=== PATIENT | female | born 1965 | race Caucasian/White ===

== ENCOUNTER 2017-07-30 06:57 | Day surgery (SDC) | payer BC ==
[~2017-07-30 06:57] MED LIST: ACETAMINOPHEN 500 MG TABLET PO PRN; HYDROmorphone HCL 2 MG/ML VIAL IV PRN; MAG HYDROX/ALUMINUM HYD/SIMETH 30 ML UDC PO PRN; MAGNESIUM HYDROXIDE 30 ML UDC PO PRN; ONDANSETRON HCL/PF 2 MG/ML VIAL IV PRN; PROMETHAZINE HCL 25 MG in DEXTROSE 5 % IN WATER 50 ML IV PRN; RINGER'S SOLUTION,LACTATED 1,000 ML IV PRN; ZOLPIDEM TARTRATE 5 MG TABLET PO PRN; ceFAZolin SODIUM 1 GM VIAL IV PRN; diphenhydrAMINE HCL 50 MG/ML VIAL IV PRN; oxyCODONE HCL/ACETAMINOPHEN 1 TAB TABLET PO PRN
[2017-07-30] MEDS ORDERED: BUPIVACAINE HCL 50 ML VIAL IJ ONE ×2 (08:00)
--- NOTE | 2017-07-30 08:41 | OR ---
Operative Report - Dictated Report Narrative: Date: 07/30/2017 Physician: Brian Ragsdale M.D. Cell[employer]ane Worker: Newton Santos PA-C Preoperative diagnosis: Ganglion cyst left ring finger Postoperative diagnosis: Ganglion cyst left ring finger Procedure: Excision of ganglion cyst left ring finger Anesthesia: MAC plus local Complications: None Estimated blood loss: Minimal Tourniquet time: 21 Minutes with forearm esmarch Specimens: Cyst for permanent section Drains: None Indications: Melanie Is a 52 year-old female who has been followed in my clinic with complaints of a cyst at the base of her left ring finger that has become progressively more symptomatic. Physical exam was consistent with a ganglion cyst likely originating from the flexor tendon sheath. Conservative measures have failed including but not limited to activity modification, medications, and passage of time. The risks, benefits, and alternatives were discussed in clinic. The risks being bleeding, infection, nerve, tendon, blood vessel injury , recurrence, persistent pain, wound complications, weakness, need for additional procedures, and persistent symptoms. Consent was obtained in the clinic. Procedure: After marking the correct extremity in the preoperative holding area, a timeout was performed in the operating room. IV antibiotics consisting of 1 g of Ancef were administered prior to the procedure. The left upper extremity was then prepped and draped in usual sterile fashion. The hand was exsanguinated with an Esmarch bandage which was then wrapped around itself and left in place as a tourniquet at the wrist. A small Kavya style incision was marked out at the proximal finger crease of the left ring finger with the apex at the radial aspect. 0.5% Marcaine without epinephrine was infused into the projected incision site. Using Loupe magnification, the small Kavya incision was made and careful dissection was carried out down through the subcutaneous tissues using tenotomy scissors. The radial digital nerve was identified and carefully retracted radially with a Ragnell retractor. The cyst was then visualized and was consistent in appearance with a ganglion cyst. It was adhered to the A2 rossy and appeared to be originating from deeper in the flexor tendon sheath. The cyst was dissected away from the A2 rossy using tenotomy scissors and dissected down to its base. We excised the cyst at its stalk from the flexor tendon sheath and placed in a specimen cup for permanent section. This point the wound was inspected to ensure that we had removed the cyst in its entirety. Once we were confident we had removed all cystic tissue, the wounds were thoroughly irrigated with saline. Tourniquet was let down and hemostasis was obtained with pressure as well as bipolar cautery. Once bleeding had resolved and there was no excessive bleeding, the wounds were closed with interrupted 4- 0 nylon. Xeroform, 4 x 4's, 2 inch Maikol, and 3 inch Coban was applied. The patient was awoken and transferred to the post-anesthesia care unit in stable condition. All sponge, needle, blade, and instrument counts were correct prior to closing the wounds. Additional 0.5% Marcaine without epinephrine was infused into the skin edges for pain control.
[2017-07-30 10:38] VITALS: BP 100/61
[2017-07-30] MEDS ORDERED: SENNOSIDES/DOCUSATE SODIUM 1 TAB TABLET PO SCH (21:00)
== END 2017-07-30 06:58 | disposition home or self-care (01) ==
LOC: AMB 06:57
PROVIDERS: ATTEND Orthopaedic Surgery
PROC: 0XBK0ZZ Excision of Left Hand, Open Approach (ICD-10-PCS; principal; 2017-07-30 08:00)
DX: M67.442 Ganglion, left hand (principal); Z68.23 Body mass index [BMI] 23.0-23.9, adult

== ENCOUNTER 2018-08-23 17:59 | Observation (INO) ==
--- NOTE | 2018-08-23 18:14 | ERNOTE ---
Dizziness ER Record Date of Service: 08/23/18 Presenting Symptoms: dizziness Time Seen by Provider: 08/23/18 18:14 Source: patient Exam Limitations: no limitations Allergies/Adverse Reactions: Allergies Allergy/AdvReac Type Severity Reaction Status Date / Time No Known Allergies Allergy Verified 08/23/18 18:07 Home Medications: HOME MEDICATIONS Bupropion HCl [Wellbutrin Xl] 300 mg PO DAILY 05/15/13 [Last Taken Unknown] Multivitamin [Multivitamins] 1 each PO DAILY 07/30/17 [Last Taken Unknown] - Pain Score Pain Score #1 Pain Score: 3 - History of Present Illness Narrative: The patient is a 53 year old female who presents for dizziness which has been present for 3 weeks. Patient states that since yesterday she has had intermittent periods of left arm and leg disfunction and spouse noted slow responsiveness to questions. There are associated symptoms of left chest and mid back pain. The patient reports pain to left chest and mid back, 3/10. There are no alleviating factors. There are no aggravating factors. Previous treatments have included: none. The past medical history includes: anemia and depression. The social history is negative. The patient has had no ill contacts. Patient states that yesterday evening while resting at home she noticed that she attempted to move left arm and leg and it would not respond. Patient states that symptoms lasted for approximately 1-2 minutes then resolved. Patient states she has had periods where she feels like her left side is going to be numb and not respond but is normal. Patient states yesterday these symptoms occurred twice. Patient states today while at work she attempted to raise arms to take a picture with phone and left arm would not respond appropriately as well as left arm and leg begin weak to the point she had to sit down. Timing and Duration: better Usually:: Present: walks w/o assistance Review of Systems - Review of Systems Constitutional: Present: fatigue. Absent: fever EYE: Present: vision changes ENT: Present: ear pain. Absent: nasal drainage, sore throat Respiratory: Present: shortness of breath. Absent: cough Cardiology: Present: chest pain, palpitations Gastrointestinal/Abdominal: Present: no symptoms reported. Absent: nausea, vomiting, diarrhea Genitourinary: Present: no symptoms reported. Absent: dysuria, decreased urinary output Musculoskeletal: Present: no symptoms reported Skin: Present: no symptoms reported. Absent: rash Neurological: Present: dizziness/light-headedness, numbness, tingling Endocrine: Present: no symptoms reported Hematologic/Lymphatic: Present: no symptoms reported Psych: Present: no symptoms reported All Other Systems: All systems neg except as marked Medical History (Last Reviewed 08/23/18 @ 18:38 by MY Gann) Hx of cataract Surgical History: Surgical History (Last Reviewed 08/23/18 @ 18:38 by MY Gann) Hx of cataract surgery Hx of tubal ligation Family History: Family History (Last Reviewed 08/23/18 @ 18:38 by MY Gann) Other No pertinent family history Social History: Preferred Language Prydeinig Do you have any amish or No cultural preference? Smoking Status Never smoker Abuse History No History of abuse Psych History Hx of Depression,Currently on Meds No Social History Section defined Physical Exam - Physical Exam General Appearance: Present: wd/wn, alert, no apparent distress Head Exam: Present: normal inspection, no evidence of injury Eye Exam: Normal inspection: bilateral, PERRL: bilateral, EOMI: bilateral Progress - Date and Time Seen: Date and Time: 08/23/18 20:33 Discussed case with and will admit patient for TIA's and dizziness. Patient to have MRI brain tomorrow for further evaluation. - Results and Orders Patient's Lab Results:: I have reviewed the patient's lab results. - Vital Signs Patient's Vital Signs:: I have reviewed the patient's vital signs. Vital Signs: Vital Signs 08/23/18 18:05 Temperature 36.7 C Pulse Rate 78 Respiratory Rate 17 Blood Pressure 143/94 H O2 Sat by Pulse Oximetry 100 - EKG EKG: NSR, nonspecific ST T wave changes EKG read: Reviewed by me EKG Comments: Reviewed with . - X-Ray X-Ray #1 X-Ray: chest Interpretation: Reviewed by me X-ray Comments: No acute cardiopulmonary abnormality noted. - Progress/Reassessment Chief Complaint: Dizziness Progress:: Unchanged Progress Note-Subjective: 08/23/18 20:34 No neuro deficit on exam. Departure Clinical Impression: TIA (transient ischemic attack), Dizziness - Departure Disposition: Still a patient Condition: Good
[2018-08-23 19:02] LABS: Hemoglobin 14.2 gm/dL (12.5-16.0); Mean Cell Volume 93.3 fl (78-100); Mean Corpuscular Hemoglobin 30.8 pg (27-31); Neutrophil # 3.6 K/mm3 (1.3-6.0); Neutrophil % 56.1 % (42-75.0); Platelet Count 261 K/mm3 (150-450); Red Blood Count 4.61 M/mm3 (4.2-5.4); Red Cell Distribution Width 11.9 % (11.5-14.0); White Blood Count 6.5 K/mm3 (4.0-10.5)
[2018-08-23 19:14] LABS: Prothrombin Time (Patient) 10.5 Seconds (9.0-11.0)
[2018-08-23 19:24] LABS: ALT 51 U/L (19-67); AST 32 U/L (0-48); Albumin * 4.2 gm/dl (3.4-5.0); Alkaline Phosphatase * 121 U/L (50-170); Anion Gap 10.5 mmol/L (6.8-13.8); BUN/Creatinine Ratio 21.7 (9.0-21.6); Bilirubin, Total 0.1 mg/dL (0.0-1.1); Blood Urea Nitrogen 18 mg/dL (3-23); Ca. Corrected For Albumin 9.1 mg/dL (8.4-10.2); Calcium * 9.6 mg/dL (7.9-10.9); Carbon Dioxide 33.2 mmol/L (24-32.6); Chloride 103 mmol/L (97-106); Glucose * 102 mg/dL (70-110); Potassium 3.7 mmol/L (3.4-4.6); Sodium 143 mmol/L (132-142); Total Protein 8.1 gm/dL (6.2-8.2); Troponin I Less than 0.017 ng/mL (0.00-0.10)
[2018-08-23 19:36] LABS: INR 1.05 INR (0.90-1.10); Partial Thrombolplastin Time 23.9 Seconds (24-32)
[2018-08-23] MEDS ORDERED: ENOXAPARIN SODIUM 40 MG/0.4 ML SYRG SC SCH (21:30)
--- NOTE | 2018-08-23 21:48 | HP ---
Chief Complaint - Chief Complaint Date of Service: 08/23/18 Time of Service: 21:40 Chief Complaint: I have left-sided weakness on and off since yesterday History of Present Illness: 53-year-old female with past medical history of depression was seen in our ER due to 3 episodes of left-sided hemiparesis that started yesterday. Patient reports 2 weeks ago she started having dizziness and vertigo on and off that progressively got worse and yesterday she lost function of her left upper and lower extremities but her symptoms resolved spontaneously only to recur again a few hours later. Patient reports having another episode this morning at her job where she became weak in the left lower extremity and eventually lost function in her left upper extremity. Patient's also reports that patient's speech became slurred and she had difficulty finding her words. They denied precedence of the symptoms and her past. Medical History (Last Reviewed 08/23/18 @ 18:38 by MY Gann) Hx of cataract Surgical History: Surgical History (Last Reviewed 08/23/18 @ 18:38 by MY Gann) Hx of cataract surgery Hx of tubal ligation Family History: Family History (Last Reviewed 08/23/18 @ 18:38 by MY Gann) Other No pertinent family history Social History: Preferred Language Khmer Do you have any adventism or No cultural preference? Smoking Status Never smoker Abuse History No History of abuse Psych History Hx of Depression,Currently on Meds No Social History Section defined Peds Patient Hx - Developmental: No Pertinent Hx Peds Patient Hx - Medical: No Pertinent Hx Peds Patient Hx - Cardiac/Respiratory: No Pertinent Hx Peds Patient Hx - Surgical: No Surgical History Patient History - Cancer: No Hx of Cancer Review Of Systems (GEN) - Review of Systems Generalized/Overall Review: Present: No Symptoms Reported EENTM: Present: No Symptoms Reported Respiratory: Present: No Symptoms Reported Cardiac: Present: No Symptoms Reported Abdominal: Present: No Symptoms Reported Genitourinary: Present: No Symptoms Reported Musculoskeletal: Present: Neck Pain Neurological: Present: Weakness - Left-sided weakness of left upper and lower extremity Skin: Present: No Symptoms Reported Endocrine: Present: No Symptoms Reported Misc: All systems neg except as marked Allergies/Adverse Reactions: Allergies Allergy/AdvReac Type Severity Reaction Status Date / Time No Known Allergies Allergy Verified 08/23/18 18:07 Home Medications: HOME MEDICATIONS Bupropion HCl [Wellbutrin Xl] 300 mg PO DAILY 05/15/13 [Last Taken Unknown] Multivitamin [Multivitamins] 1 each PO DAILY 07/30/17 [Last Taken Unknown] Exam - Exam Vital Signs: Vital Signs - Last Taken Temp 36.7 C 08/23/18 18:05 Pulse 71 08/23/18 20:17 Resp 16 08/23/18 19:53 BP 146/77 H 08/23/18 19:53 Pulse Ox 99 08/23/18 19:53 Constitutional: Present: Alert, Oriented x3, Cooperative, Well developed, Well nourished, No distress ENT Exam: Present: normal ENT inspection, hearing grossly normal, pharynx normal, TMs normal Eye Exam: bilateral eye: normal inspection, PERRL, EOMI Neck: Present: non-tender, full range of motion, supple, normal inspection Back Exam: Present: normal inspection, no CVA tenderness, no vertebral tenderness Breasts: Present: Exam deferred Respiratory: Present: chest non-tender Cardiovascular/Chest: Present: normal peripheral pulses, regular rate, rhythm, no chest tenderness, no edema, no gallop, no JVD, no murmur, no rub Peripheral Pulses: carotid (R): 4+, carotid (L): 4+, femoral (R): 4+, femoral (L): 4+ Abdomen: Present: Normal bowel sounds, soft, nontender, nondistended, no rebound tenderness, no hepatospenomegaly, no masses /Rectal: Present: Exam deferred Extremity: Present: normal range of motion, non-tender, normal inspection, no pedal edema, no calf tenderness, normal capillary refill, pelvis stable Skin Exam: Present: normal color, warm/dry, no cyanosis Lymphatic: Present: no adenopathy Neurologic: Present: community dietitian II-XII nml as tested, normal cerebellar test, no motor/sensory deficits, alert, normal mood/affect, oriented x 3 Appearance: Present: appropriate appearance, appropriate insight, neat, no memory impairment Eye contact: Present: cooperative Thoughts: Present: normal thought pattern Diagnostic Studies: Abnormal Lab Results 08/23/18 08/23/18 Range/Units 18:55 18:55 PTT (Tea) 23.9 L (24-32) Seconds Sodium 143 H (132-142) mmol/L Plasma Sodium 143 H (130-142) mmol/L Carbon Dioxide 33.2 H (24-32.6) mmol/L BUN/Creatinine Ratio 21.7 H (9.0-21.6) Laboratory Results WBC 6.5 K/mm3 (4.0-10.5) 08/23/18 18:55 RBC 4.61 M/mm3 (4.2-5.4) 08/23/18 18:55 Hgb 14.2 gm/dL (12.5-16.0) 08/23/18 18:55 Hct 43.0 % (37.0-47.0) 08/23/18 18:55 MCV 93.3 fl (78-100) 08/23/18 18:55 MCH 30.8 pg (27-31) 08/23/18 18:55 MCHC 33.0 g/dl (32-36) 08/23/18 18:55 RDW 11.9 % (11.5-14.0) 08/23/18 18:55 Plt Count 261 K/mm3 (150-450) 08/23/18 18:55 MPV 9.0 fl (8-12.5) 08/23/18 18:55 Immature Gran % (Auto) 0.30 % (0.001-0.429) 08/23/18 18:55 Immature Gran # (Auto) 0.02 K/mm3 (0.000-0.0310) 08/23/18 18:55 Neutrophils % 56.1 % (42-75.0) 08/23/18 18:55 Lymphocytes % 33.5 % (20-51) 08/23/18 18:55 Monocytes % 7.3 % (0.0-9) 08/23/18 18:55 Eosinophils % 2.3 % (0.0-3.0) 08/23/18 18:55 Basophils % 0.5 % (0.0-1.0) 08/23/18 18:55 Nucleated RBC % 0.0 k/mm3 (0-1) 08/23/18 18:55 Neutrophils # 3.6 K/mm3 (1.3-6.0) 08/23/18 18:55 Lymphocytes # 2.17 k/mm3 (1.5-3.5) 08/23/18 18:55 Monocytes # 0.5 k/mm3 (0.0-1.0) 08/23/18 18:55 Eosinophils # 0.2 k/mm3 (0.0-0.7) 08/23/18 18:55 Absolute Basophils 0.0 k/mm3 (0.0-0.1) 08/23/18 18:55 ESR 15 mm/hr (0-15) 08/23/18 18:55 PT 10.5 Seconds (9.0-11.0) 08/23/18 18:55 INR (Anticoag Therapy) 1.05 INR (0.90-1.10) 08/23/18 18:55 PTT (Tea) 23.9 Seconds (24-32) L 08/23/18 18:55 Sodium 143 mmol/L (132-142) H 08/23/18 18:55 Plasma Sodium 143 mmol/L (130-142) H 08/23/18 18:55 Potassium 3.7 mmol/L (3.4-4.6) 08/23/18 18:55 Chloride 103 mmol/L (97-106) 08/23/18 18:55 Carbon Dioxide 33.2 mmol/L (24-32.6) H 08/23/18 18:55 Anion Gap 10.5 mmol/L (6.8-13.8) 08/23/18 18:55 BUN 18 mg/dL (3-23) 08/23/18 18:55 Creatinine 0.83 mg/dL (0.4-1.4) 08/23/18 18:55 Est GFR (Non-Af Amer) 76 mL/min (60-130) 08/23/18 18:55 BUN/Creatinine Ratio 21.7 (9.0-21.6) H 08/23/18 18:55 Random Glucose 102 mg/dL (70-110) 08/23/18 18:55 Calcium 9.6 mg/dL (7.9-10.9) 08/23/18 18:55 Calcium Adj for Albumin 9.1 mg/dL (8.4-10.2) 08/23/18 18:55 Total Bilirubin 0.1 mg/dL (0.0-1.1) 08/23/18 18:55 AST 32 U/L (0-48) 08/23/18 18:55 ALT 51 U/L (19-67) 08/23/18 18:55 Alkaline Phosphatase 121 U/L (50-170) 08/23/18 18:55 Troponin I Less than 0.017 ng/mL (0.00-0.10) 08/23/18 18:55 Total Protein 8.1 gm/dL (6.2-8.2) 08/23/18 18:55 Albumin 4.2 gm/dl (3.4-5.0) 08/23/18 18:55 Assessment/Plan - Narrative Narrative: Patient was evaluated medical chart reviewed including labs and head CT results, it was determined that patient is experiencing a TIA given her signs and symptoms. Left-sided weakness has resolved and patient denies dizziness or vertigo, she maintained stable vitals and her speech has been restored. However given her symptoms the decision to admit her for observation was made and brain MRI without contrast was ordered for tomorrow morning for reevaluation and to rule out evolutionary changes of the brain. Will monitor closely. - Assessment/Plan (1) TIA (transient ischemic attack) Problem: Acute
[2018-08-23 23:31] LABS: Urine Bilirubin Negative (NEGATIVE); Urine Blood Negative /ul (NEGATIVE); Urine Ketone 15 mg/dL (NEGATIVE); Urine Nitrite Negative (NEGATIVE); Urine Protein Negative (NEGATIVE); Urine Specific Gravity >=1.030 SP.GR. (1.005-1.010); Urine Urobilinogen Normal (NORMAL); Urine pH 5.5 pH (5.0-7.0)
[2018-08-23 23:46] LABS: Urine Appearance Clear (CLEAR); Urine Bacteria None Seen; Urine Color Yellow; Urine RBC None Seen /hpf (0-5); Urine WBC 0-5 /hpf (0-5)
[2018-08-24] MEDS ORDERED: buPROPion HCL 150 MG TAB.SR.24H PO SCH (09:00)
[2018-08-24] MEDS ORDERED: MULTIVITAMINS 1 CAP CAPSULE PO SCH (09:00)
--- NOTE | 2018-08-24 10:53 | DS ---
(1) TIA (transient ischemic attack) Problem: Acute Description of Stay: 53-year-old female admitted for TIA was evaluated at bedside and was found to be afebrile and in no acute distress. Patient was brought to our ER due to multiple episodes of left-sided weakness that started Thursday morning. Patient reports that for the last several weeks she has been having dizzy spells and fogginess but then 2 days ago she started experiencing weakness in her left arm that he radiated to her left leg.. The last episode occurred at her job when she attempted to lift up her cell phone to take a picture of something and she was unable to do so due to weakness, her also reported that her speech was slurred and she had difficulty finding her words. Head CT was done in the ER which is negative for any acute changes and follow-up brain MRI was performed this morning which is also negative for any acute leading or neurological changes. Therefore decision to discharge has been taken patient was instructed to follow-up with her PCP in 3-5 days. She was also instructed to return to the ER if symptoms recur. Procedures Performed: none Results and Findings: Lab Pending Results 08/23/18 18:55: WBC 6.5, RBC 4.61, Hgb 14.2, Hct 43.0, MCV 93.3, MCH 30.8, MCHC 33.0, RDW 11.9, Plt Count 261, MPV 9.0, Immature Gran % (Auto) 0.30, Immature Gran # (Auto) 0.02, Neutrophils % 56.1, Lymphocytes % 33.5, Monocytes % 7.3, Eosinophils % 2.3, Basophils % 0.5, Nucleated RBC % 0.0, Neutrophils # 3.6, Lymphocytes # 2.17, Monocytes # 0.5, Eosinophils # 0.2, Absolute Basophils 0.0 08/23/18 18:55: ESR 15 08/23/18 18:55: PT 10.5, INR (Anticoag Therapy) 1.05, PTT ([place]) 23.9 L 08/23/18 18:55: Sodium 143 H, Plasma Sodium 143 H, Potassium 3.7, Chloride 103, Carbon Dioxide 33.2 H, Anion Gap 10.5, BUN 18, Creatinine 0.83, Est GFR (Non-Af Amer) 76, BUN/Creatinine Ratio 21.7 H, Random Glucose 102, Calcium 9.6, Calcium Adj for Albumin 9.1, Total Bilirubin 0.1, AST 32, ALT 51, Alkaline Phosphatase 121, Troponin I Less than 0.017, Total Protein 8.1, Albumin 4.2 08/23/18 20:14: Urine Color Yellow, Urine Appearance Clear, Urine pH 5.5, Ur S pecific Jackson >=1.030, Urine Protein Negative, Urine Glucose (UA) Negative, Urine Ketones 15, Urine Blood Negative, Urine Nitrate Negative, Urine Bilirubin Negative, Urine Urobilinogen Normal, Ur Leukocyte Esterase Negative, Urine RBC None seen, Urine WBC 0-5, Ur Epithelial Cells 0-5, Urine Bacteria None seen, Urine Culture Comments No culture indicated Discharge Location: Home Disposition: Home self-care Condition: Good Face to Face Encounter completed per [facility] Guidelines: No Discharge Activity: Activity as tolerated Discharge Diet: General/regular food Referrals: Annette Terrazas, [Primary Care Provider] - Complete Home Medications List: Complete Home Medication List: Bupropion HCl [Wellbutrin Xl] 300 mg PO DAILY 05/15/13 Multivitamin [Multivitamins] 1 each PO DAILY 07/30/17
[2018-08-24 12:31] VITALS: BP 121/78
== END 2018-08-24 12:45 | disposition home or self-care (01) ==
LOC: ER 17:59 → MS 17:59
PROVIDERS: ADMIT Family Medicine; ATTEND Family Medicine
DX: G45.9 Transient cerebral ischemic attack, unspecified
CPT/HCPCS: 36415; 70450; 70553; 71020; 71046; 80053; 81001; 84484; 85025; 85610; 85652; 85730; 93005; 96372; 99283; G0378